=== PATIENT | male | born 1995 | race Two or more races ===

== ENCOUNTER 2016-03-19 19:54 | Emergency (ER) | payer MEDICAID ==
[2016-03-19] MEDS ORDERED: IOPAMIDOL 370 (76%) 100 ML VIAL IV ONE (19:55)
[2016-03-19 20:37] LABS: BASO # 0.1 K/mm3 (0.0-0.2); BASO % 0.6 % (0.2-1.0); EOS # 0.2 (0.0-0.5); EOS % 2.6 % (0.9-2.9); HEMATOCRIT 46.3 % (32.0-52.0); HEMOGLOBIN 15.6 gm/l (14.0-18.0); IMM NEUT% 0.3 % (0-1); LYMPH % 33.6 % (15-45); MEAN CELL VOLUME 88.2 fl (80.0-94.0); MEAN CORPUSCULAR HEMOGLOBIN 29.7 pg (27.0-31.0); MEAN CORPUSCULAR HGB CONC 33.7 g/dl (33.0-37.0); MEAN PLATELET VOLUME 11.6 fl (7.4-10.4); MONO # 0.7 (0.0-0.8); MONO % 7.7 % (4-12); NEUT % 55.2 % (43-75); PLATELET COUNT 220 K/mm3 (130-400); RED CELL DISTRIBUTION WIDTH 12.9 % (11.5-14.5)
--- NOTE | 2016-03-19 20:41 | CT ---
Exam: CT angiogram chest with contrast Comparison: Chest radiograph 03/19/[address] cervical spine 12/28/2015 History: Chest pain and elevated d-dimer. Earlier for the chest radiograph patient described chest pain above the sternum for one month as well as shortness of breath and heart racing for one month. Technique: CT angiogram of the chest was obtained following the administration of 80 mL Isovue-370 intravenous contrast using a CT angiogram pulmonary embolism protocol which was supplemented with MIP reconstructions performed at the CT workstation. Findings: There is no evidence of acute pulmonary thromboembolic disease through the proximal subsegmental level. The aorta is overall normal in caliber and contour. There is no significant mediastinal or hilar lymphadenopathy by size criteria. There is no pleural or pericardial effusion. Lungs are unremarkable. Limited evaluation of the upper abdomen demonstrates a markedly distended stomach, which may reflect recent meal ingestion versus perhaps gastroparesis. Upper abdomen is otherwise unremarkable. No worrisome osseous abnormality is identified. IMPRESSION: 1. No evidence of acute pulmonary thromboembolic disease, or findings identified to explain patient's symptoms. 2. Distended stomach, either reflecting recent meal ingestion also likely gastroparesis. 3. Otherwise unremarkable CT of the chest. Report was uploaded to the EMR at 2035 hours 03/19/2016.
[2016-03-19 21:00] LABS: ALB/GLOB RATIO 1.4 (>1.0); ALBUMIN 4.6 gm/dL (3.5-5.7); CALCIUM 9.4 mg/dL (8.6-10.3)
[2016-03-19 21:02] LABS: TROPONIN I < 0.01 ng/ml (0.0-0.06)
[2016-03-19 21:06] LABS: CKMB ISOENZYME 2.9 ng/ml (0.6-6.3)
== END 2016-03-19 22:10 | disposition home or self-care (01) ==
LOC: ED 19:54
DX: R06.02 Shortness of breath (principal); R06.89 Other abnormalities of breathing
CPT/HCPCS: 83880; 85379; 85025; 82550; 82553; 80053; 84484; 36415; 71020; 71275; 99284 ×2; 93005; Q9967